=== PATIENT | male | born 1985 | race Caucasian/White ===

== ENCOUNTER 2016-07-03 17:08 | Emergency (ER) | payer SELFPAY ==
[~2016-07-03] VITALS: Ht 167.6 cm; Wt 86.0 kg
[2016-07-03] MEDS ORDERED: AMOX125S8 PO (17:22)
[2016-07-03] MEDS ORDERED: CODE118S2 PO (17:22)
[2016-07-03 18:09] VITALS: BP 126/79
== END 2016-07-03 20:52 | disposition home or self-care (01) ==
LOC: ER 19:18
DX: R07.89 Other chest pain (principal); R05 Cough
CPT/HCPCS: 71020; 93005; 99284

== ENCOUNTER 2018-10-05 17:43 | Emergency (ER) | payer SELFPAY ==
[~2018-10-05] VITALS: Ht 167.6 cm; Wt 91.0 kg
[~2018-10-05 17:43] MED LIST: AMOX125S12 PO; CODE118S2 PO
[2018-10-05] MEDS ORDERED: SODIUM CHLORIDE 0.9% 1,000 ML IV ONE (18:30)
[2018-10-05] MEDS ORDERED: KETOROLAC 15MG/ML VIAL IV ONE (18:30)
[2018-10-05] MEDS ORDERED: METOCLOPRAMIDE HCL 10MG/2ML VIAL IV ONE (18:30)
[2018-10-05 18:57] LABS: BASOPHILS % 0.6 % (0.0-2.0); EOSINOPHILS % 0.1 % (0.0-5.0); HEMATOCRIT. 48.1 % (42.0-52.0); HEMOGLOBIN. 16.5 g/dL (14.0-18.0); LYMPHOCYTES % 18.7 % (20.0-50.0); MEAN CORPUSCULAR HEMOGLOBIN 28.9 pg (28.0-32.0); MEAN CORPUSCULAR VOLUME 84.2 fL (80.0-94.0); MEAN PLATELET VOLUME 7.9 fl (7.4-10.4); MONOCYTES % 11.8 % (2.0-8.0); NEUTROPHILS % 68.8 % (40.0-76.0); PLATELET 236 x1000/uL (130-400); RED BLOOD CELL COUNT 5.72 mill/uL (4.7-6.1); RED CELL DISTRIBUTION WIDTH 13.4 % (11.6-14.6)
[2018-10-05 18:58] LABS: CHLORIDE 102 mEq/L (98-107)
[2018-10-05] MEDS ORDERED: PROCHLORPERAZINE 10MG/2ML VIAL IV PRN (20:00)
[2018-10-05 20:58] VITALS: BP 118/63
== END 2018-10-05 20:55 | disposition home or self-care (01) ==
LOC: ER 17:43
DX: G44.209 Tension-type headache, unspecified, not intractable (principal); R11.0 Nausea
CPT/HCPCS: 36415; 80048; 85025; 96374; 96375; 99283; J1885; J2765; J7030